=== PATIENT | female | born 1960 | race Caucasian/White ===

== ENCOUNTER → 2020-04-13 14:57 | Outpatient (CLI) | payer OTHER, SELFPAY ==
[2020-04-16 06:37] LABS: COVID19 Sendout Not Detected (Not Detect)
== END ==
PROVIDERS: Visit Provider Physician Assistant
DX: Z01.818 Encounter for other preprocedural examination (principal)
CPT/HCPCS: 87635

== ENCOUNTER 2020-04-16 12:03 | Day surgery (SDC) | payer OTHER, SELFPAY ==
[2020-04-12 12:14] VITALS: BMI 29.7
[2020-04-16] VITALS (10 sets, daily range): BP systolic 115–151; BP diastolic 51–95; PULSE 57–79; RESP 12–20; TEMP 35.8–36.9; O2SAT 94–100; BMI 31.6
--- NOTE | 2020-04-16 | DI.RAD.S_ITS ---
PROCEDURE: XR LUMBAR SPINE 1V INDICATIONS: Lumbosacral spine surgery. TECHNIQUE: Single lateral view of the lumbar spine was acquired. COMPARISON: [facility], CR, XR LUMBAR SPINE WITH FLEXION EXTENSION 5 VIEWS, 01/25/2019, 7:22. [facility], MR LUMBAR SPINE WITHOUT CONTRAST, 08/03/2019, 9:38. FINDINGS: Bones: Single lateral view, no frontal views available to establish laterality of approach and landmarks are not visible to establish definite axial level. However, the recent comparison lumbosacral spine plain film imaging from 01/25/19 shows degenerative disc disease and sclerosis pattern at L2-3 that very closely matches the upper disc levels seen on the lateral view available from the current study. Therefore, the port for access into the the spinal canal is centered over the posterior elements at the L3-L4 level with reference to the prior examination. Soft tissues: Overlying bowel gas pattern is normal. No suspicious soft tissue calcifications. IMPRESSION: Apparent L3-L4 localization by port for access in performance of surgical intervention at the spinal canal. Please review report above regarding limitations of this study. Dictated by: Ricky Ren M.D. on 04/16/2020 at 15:52 Approved by: Ricky Ren M.D. on 04/16/2020 at 15:57
[2020-04-16] MEDS: LACTATED RINGERS 1,000 ML 42 ML IV (13:03)
--- NOTE | 2020-04-16 13:33 | PM.PREOP ---
Pre-operative Note COVID-19 COVID-19 status: Negative Result date/Date tested (Pos, Neg/Pending): 04/14/20 Interval Note History & Physical reviewed/Exam performed by Physician: Yes Changes to H&P: No
[2020-04-16] MEDS: MIDAZOLAM 2 MG/2 ML VIAL IV (14:00)
[2020-04-16] MEDS: CEFAZOLIN 2 GM/100 ML FROZ.PIGGY IV (14:05)
--- NOTE | 2020-04-16 14:29 | SUR.OPER ---
Prone on spine table, head in foam head support, padded chest and pelvic supports, gel pad at knees, lower legs supported by pillows; nipples, genitalia and toes free of pressure, arms secured on foam padded arm boards at <90 degrees abduction. Tape over blanket at thigh secured to table.
[2020-04-16] MEDS: BUPIVACAINE 0.25% W/ EPI 30 ML VIAL INJ (14:36)
--- NOTE | 2020-04-16 15:00 | PM.OP.1 ---
Operative Date/Time/Diagnoses Date of procedure: 04/16/20 Time of procedure: 14:03 Pre-op diagnosis: 1. L3-4, L4-5 spinal stenosis 2. Lumbar epidural lipomatosis Post-op diagnosis: same Procedure & Clinicians Procedure: 1. L4-5 laminectomy 2. L3-4 hemilaminectomy 3. Utilization of microsurgical technique and operating microscope Same procedure as scheduled: Yes Indications: Patient has been having chronic back pain and worsening lumbar radiculopathy. Patient failed multiple conservative management with worsening pain weakness and numbness in her lower extremity. Patient has been having difficulty performing activity of daily living. After discussing risks benefits of treatment options, patient elected proceed with surgery. Surgeon: Tex Barrios Skidder Runner: Shannan Broussard'Brien Click Yes if Unassisted: No Anesthesia Type: General Operative Notes Closure Type: primary Specimen(s): none sent Estimated Blood Loss (mL): 10 Blood products transfused: none Procedure in detail: Patient was seen in the preoperative area. Risks and benefits of the surgery was discussed with the patient. Informed consent was obtained from the patient and placed in the chart. Surgical site was marked. Patient was taken to the operative room. General anesthesia was administered. Prophylactic antibiotic was given to the patient less than 30 min before the incision was made. Patient was placed into a prone position on the Jason table. Patient's back was then prepped and draped in the sterile fashion. Time-out was performed at this time. Using AP and lateral C-arm imaging the interval between L3-4 L4-5 was identified and marked on patient's back. A 1 inch incision 1 in from midline was made on the right side. The fascia was incised in line with skin incision. Globus MARS retractors was placed inside the incision and docked onto the L4 lamina. Using microsurgical technique and operating microscope, a L4 laminectomy was performed using a Kerrison rongeur. Liagamentum flavum was resected at the site of the laminotomy. Either side of the dura was exposed. Bilateral partial facetcomies was performed to further decompress the lateral recess. Patient was found to have significant amount of epidural lipomatosis which was carefully resected using Kerrison rongeur pituitary which significantly decompressed patient's epidural space and thecal sac. After the laminectomy was completed, the area medial lateral superior and inferior to the area of the laminectomy was inspected and explored using a micro curette. No other impinging structure was identified. The MARs retractor was redirected over the L3-4 level and a L3 hemilaminectomy was performed using a Kerrison rongeur to decompress the epidural space and the lateral recess. The wound was then irrigated with sterile normal saline. 40 mg Depo-Medrol was placed into the epidural space. The deep fascia was closed with 1-0 Vicryl. The subcutaneous tissue was closed with 2-0 Vicryl. The skin was closed with 4-0 Monocryl. Patient tolerated the procedure well. There were no complications. Patient was transferred recovery room in stable condition. Complications: none Post-operative Condition: stable Disposition: PACU Plan for aftercare: Discharge to home
[2020-04-16] MEDS: methylPREDNISolone acet DEPO 40 MG/ML VIAL IM (15:06)
[2020-04-16] MEDS: fentaNYL 100 MCG/2 ML INJ IV ×2 (15:25→15:31)
[2020-04-16] MEDS: ONDANSETRON 4 MG/2 ML INJ IV (15:25)
[2020-04-16] MEDS: HYDROMORPHONE 2 MG INJ IV ×3 (15:36→15:51)
[2020-04-16] MEDS: OXYCODONE/ACETAMINOPHEN 5/325 TABLET 1 TAB PO ×2 (15:36→16:06)
[2020-04-16] MEDS: hydrOXYzine pamoate 25 MG CAPSULE PO (15:51)
== END 2020-04-16 16:55 | disposition home or self-care (01) ==
LOC: OR 12:07 → AC 12:08
PROVIDERS: PCP Family Medicine; Referring Provider Orthopaedic Surgery Orthopaedic Surgery of the Spine; Visit Provider Orthopaedic Surgery Orthopaedic Surgery of the Spine
PROC: (CPT 63047; principal; 2020-04-16 13:45)
DX: M48.061 Spinal stenosis, lumbar region without neurogenic claudication (principal); M47.27 Other spondylosis with radiculopathy, lumbosacral region; E88.2 Lipomatosis, not elsewhere classified
CPT/HCPCS: 63047; 63030; 72020; 76000; J0690; J1030; J1100; J1170; J2250; J2405; J2704; J3010